=== PATIENT | male | born 1980 | race Caucasian/White ===

== ENCOUNTER 2020-10-11 15:33 | Outpatient (CLI) | payer OTHER ==
--- NOTE | 2020-10-12 11:18 | MRI Report ---
PROCEDURE: Shoulder RT W/O INDICATIONS: RT SHOULDER PAIN TECHNIQUE: Noncontrast oblique coronal T2 fast spin echo with fat saturation, oblique sagittal T1 spin echo and T2 fast spin echo with fat saturation, axial T1 spin echo and T2 fast spin echo with fat saturation t hrough the shoulder. COMPARISON: None. FINDINGS: Image quality: Excellent. Rotator cuff: There is suggestion of distal supraspinatus tendinosis. Distal infraspinatus tendon is intact. Tendinosis and low-grade partial-thickness tear involving superior to mid fibers of distal robert bscapularis is seen. No full-thickness rotator cuff tendon rupture. No rotator cuff muscle atrophy on sagittal images. Bones and bursae: No bone marrow contusions or fractures. [id number] acromioclavicular joint o steophytic changes are seen. The acromion demonstrates conventional anatomy, without an os acromiale . No pathologic subacromial/subdeltoid bursal fluid is present. Capsule and soft tissues: In the absence of intra-articular contrast, the labrum and glenohumeral li gaments appear intact. The long head of the biceps tendinosis and low-grade partial-thickness tear i s likely present. The rotator interval appears normal, without fibrosis. The coracohumeral ligament is normal in thickness. IMPRESSION: 1. Distal supraspinatus tendinosis. Tendinosis and low-grade partial-thickness tear involving superio r to mid fibers of distal subscapularis. 2. Mild to moderate acromioclavicular joint osteoarthritis. No fracture or dislocation. 3. No definite focal labral tear. 4. Suggestion of proximal intra-articular portion of long head of biceps tendinosis. Reviewed by: Jose Georges MD on 10/12/2020 11:16 AM PST Approved by: Jose Georges MD on 10/12/2020 11:16 AM PST Station ID: [id number]
== END 2020-10-11 15:34 | disposition home or self-care (01) ==
LOC: DI 15:33
PROVIDERS: ATTEND Family Medicine
DX: S46.821A Laceration of other muscles, fascia and tendons at shoulder and upper arm level, right arm, initial encounter (principal); M19.011 Primary osteoarthritis, right shoulder; M75.81 Other shoulder lesions, right shoulder

== ENCOUNTER 2020-10-30 09:23 | Outpatient (CLI) | payer OTHER ==
--- NOTE | 2020-10-30 14:26 | XRAY Report ---
PROCEDURE: Shoulder 3 View RT INDICATIONS: R SHOULDER PX TECHNIQUE: 3 views of the shoulder were acquired. COMPARISON: MRI dated 10/11/2020 FINDINGS: Bones: No fractures or dislocations. No suspicious bony lesions. Visualized ribs appear intact. P resumed postsurgical lucencies within the glenoid. Moderate periarticular osteophyte formation at the glenohumeral and acromioclavicular joints. Soft tissues: No suspicious soft tissue calcifications. IMPRESSION: 1. Osteoarthritis. 2. Postsurgical sequelae. 3. No acute fracture. No osseous lesion. If symptoms and/or clinical suspicion for pathology continue , further assessment with repeat plain films, or advanced imaging (e.g., CT, MRI, or bone scan) is re commended for further assessment. Reviewed by: Estela Belcher MD on 10/30/2020 2:25 PM PST Approved by: Estela Belcher MD on 10/30/2020 2:25 PM PST Station ID: [id number]
== END 2020-10-30 23:59 | disposition home or self-care (01) ==
LOC: DI.N 09:23
PROVIDERS: ATTEND Orthopaedic Surgery
DX: M19.011 Primary osteoarthritis, right shoulder (principal)

== ENCOUNTER 2020-11-14 14:06 | Outpatient (CLI) | payer OTHER ==
[2020-11-14] MEDS ORDERED: BUFFERED LIDOCAINE 10 ML SYRINGE ONE (14:17)
[2020-11-14] MEDS ORDERED: ROPIVACAINE 0.5% PF 20 ML AMPULE ONE ×2 (14:18→15:51)
[2020-11-14] MEDS ORDERED: TRIAMCINOLONE 40 MG/ML VIAL ONE (14:19)
[2020-11-14] MEDS ORDERED: BUFFERED LIDOCAINE 10 ML SYRINGE IU ONE (15:34)
[2020-11-14] MEDS ORDERED: iohexoL-240 10 ML VIAL IVP ONE (15:36)
[2020-11-14] MEDS ORDERED: TRIAMCINOLONE 40 MG/ML VIAL IM ONE (15:37)
[2020-11-14] MEDS ORDERED: ROPIVACAINE 0.5% PF 20 ML AMPULE EP ONE (15:40)
--- NOTE | 2020-11-14 15:56 | XRAY Report ---
PROCEDURE: Inj/Aspiration Major Joint INDICATIONS: ARTHRITIS, R SHLDR CONTRAST: CONTRAST: Omipaque 240 FLUORO TIME: FLUORO TIME: 23 sec and NUMBER IMAGES: 4 TECHNIQUE: The indications, alternatives, benefits, risks, and complications of the procedure were explained to the patient. Written informed consent was obtained and placed in the chart. The patient was placed in an appropriate position on the fluoroscopy table, and a site was chosen for percutaneous access un ronald fluoroscopic guidance. Local anesthetic was administered using a 1% lidocaine solution. A hypod ermic or spinal needle was then used to access the symptomatic joint. Intra-articular location of th e needle tip was confirmed by injecting a small amount of contrast, followed by steroid administratio n. The needle was then withdrawn, and a bandage applied to the puncture site. FINDINGS: Joint injected: Right shoulder Medications injected: 5 mL of 40 mg/mL Kenalog (1 mL) and 0.5% Ropivacaine (4 mL) mixture. Complications: None. IMPRESSION: Successful fluoroscopically guided administration of steroid and anaesthetic solution into the right shoulder joint. Reviewed by: Wilmer Cedeno MD on 11/14/2020 3:55 PM PST Approved by: Wilmer Cedeno MD on 11/14/2020 3:55 PM PST Station ID: [id number]
== END 2020-11-14 14:07 | disposition home or self-care (01) ==
LOC: DI 14:06
PROVIDERS: ATTEND Orthopaedic Surgery
DX: M12.811 Other specific arthropathies, not elsewhere classified, right shoulder (principal)
CPT/HCPCS: 20610; Q9966